=== PATIENT | female | born 1970 | race Caucasian/White ===

== ENCOUNTER 2023-12-16 12:49 | Outpatient (AMB) | payer OTHER, SELFPAY ==
--- NOTE | 2023-12-16 12:50 | AM.OFFWIN_ITS ---
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 She states she has been dealing with teeth issues and has been on multiple round of antibiotics. Patient Tobacco Use Status: Current everyday Tobacco user Accompanied by: Self / Same As Patient Allergies No Known Allergies Allergy (Verified 12/16/23 12:55) Do you need a note to return to daycare/school/sports/work: No HPI HPI Comments History of Present Illness Details She preents to office with HTN She has no significant medical hx Only issue is a tooth on the L side that needs extraction Pain intermittent; she had appointment for extraction but FLAQUITO was too high (November 21), was 180s/? She was given ativan prior to coming to next appointment (Friday and yesterday taken) and arrived to appointment yesterday and BP was still elevated Unable to be extracted She does not have a PCP; last seen October 17 for yearly OB appointment and BP was 138/88 She denies symptoms with HTN No dizziness, vision changes, nausea/vomiting, CP, SOB, weakness or numbness Otherwise she feels fineSaw Dr briscoe in the past; 4 years ago ON LICENSE OF [facility] Social History Patient Tobacco Use Status: Current everyday Tobacco user Review of Systems Const Denies body aches, Denies chills, Denies fatigue, Denies fever(s) and Denies headache(s) Eyes Denies blurry vision and Denies change in vision ENT Denies otalgia, Denies headache(s), Reports mouth pain (dental pain L sided intermittent since October 2023), Denies nasal discharge and Denies sore throat Card Denies chest pain, Denies rapid heart rate and Denies dyspnea Resp Denies cough and Denies dyspnea GI Denies nausea and Denies vomiting Musc Denies myalgias Neuro Denies headache(s) Endo Denies fatigue Physical Exam Vital Signs: Last Vital Signs Pulse 86 12/16/23 12:51 BP 190/110 H 12/16/23 12:51 Pulse Ox 100 12/16/23 12:51 Oxygen Delivery Method Room Air 12/16/23 12:51 General: Non-toxic, NAD. Speaking full sentences. Skin: Warm dry throughout. No facial edema or erythema. No submandibular edema Eye: EOMI, PERRL HENT: Airway patent. Uvula midline. No pharyngeal erythema or edema. No CATALYTIC CASE OPERATOR. Bilateral canals clear. TM non-erythematous, non-bulging. No TM perforation or hemotympanum noted. Respiratory: CTA bilaterally. No wheezes, rales or rhonchi Cardiac: RRR. No murmur MSK: Full ROM extremities. Neurology: A/O. No aphasia or facial droop. Gait without abnormality Psych: Good mood and affect Assessment & Plan Assessment & Plan (1) Hypertension: Code(s): I10 - Essential (primary) hypertension Qualifiers: Hypertension type: unspecified Qualified Code(s): I10 - Essential (primary) hypertension Plan: Patient seen and evaluated. She has no current complaint aside from intermittent L sided dental pain and HTN EKG will be obtained in office; 73bpm, NSR No STEMI Repeat pressure 182/108 LUE sitting Discussed with pt that she needs to get into PCP and she will ask front if they will place her on the schedule Discussed case with PCP in office and they told me protocol to ask up front and place her on medicine Will start on HCTZ low dose and have pt keep log every other day We discussed in depth that uncontrolled BP can lead to stroke and IA and potentially she is aware She was educated on s/s of hypo and hypertension and when to go to ED Patient gave verbal understanding and had no additional questions or concerns at time of discharge All questions answered Orders: Orders AMB EKG-In Office Today I10 - Essential (primary) hypertension Medications: New hydrochlorothiazide 12.5 mg PO DAILY 30 tabs 0RF Coding Level of Care Code New Pt Level 4 (26797) Diagnoses Hypertension, unspecified type I10 Hypertension type: unspecified
[2023-12-16 12:51] VITALS: BP 190/110; PULSE 86; O2SAT 100
== END 2023-12-16 14:32 | disposition home or self-care (01) ==
PROVIDERS: PCP Internal Medicine; Visit Provider Physician Assistant
DX: I10 Essential (primary) hypertension (principal)
CPT/HCPCS: 99204

== ENCOUNTER 2023-12-26 08:11 | Outpatient (AMB) | payer OTHER, SELFPAY ==
--- NOTE | 2023-12-26 08:37 | AM.OFFWIN_ITS ---
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 Pt was seen previous at Walk in clinic for elevated BP. She was prescribed HCTZ 12.5 mg. Denies any Symptoms. She has been unable to monitor BPs at home because her Monitor is broken. She is planning to purchase new one today. PFSH Social History Patient Tobacco Use Status: Current everyday Tobacco user Review of Systems Const All systems reviewed & are unremarkable except as noted in HPI and below Physical Exam Vital Signs: Last Vital Signs Temp 97.7 F 12/26/23 08:39 Pulse 72 12/26/23 08:39 BP 110/70 12/26/23 08:39 Pulse Ox 99 12/26/23 08:39 Oxygen Delivery Method Room Air 12/26/23 08:39 Const General: comfortable and no acute distress Orientation/consciousness: patient oriented x3 Resp Effort & Inspection: normal respiratory effort and able to speak in complete sentences Auscultation: clear to auscultation bilaterally, no crackles, no rales, no rhonchi and no wheezes Cardio Rate: regular rate Rhythm: regular rhythm Neuro General: patient oriented x3, gait normal and moves all extremities Psych Speech and movement: Normal speech and movement present Attitude: cooperative Assessment & Plan Assessment & Plan (1) Hypertension: Code(s): I10 - Essential (primary) hypertension Qualifiers: Hypertension type: unspecified Qualified Code(s): I10 - Essential (primary) hypertension Plan: - BP this morning WNL - Continue on current dose - Monitor BPs at home and keep Log - Lifestyle changes - F/U with PCP as scheduled. Coding Level of Care Code Est Pt Level 3 (69923) Diagnoses Hypertension, unspecified type I10 Hypertension type: unspecified Time Spent (min) 15
[2023-12-26 08:39] VITALS: BP 110/70; PULSE 72; TEMP 36.5; O2SAT 99
== END 2023-12-26 10:28 | disposition home or self-care (01) ==
PROVIDERS: Visit Provider Nurse Practitioner Family
DX: I10 Essential (primary) hypertension (principal)
CPT/HCPCS: 99213

== ENCOUNTER 2024-01-02 08:55 | Outpatient (AMB) | payer OTHER, SELFPAY ==
--- NOTE | 2024-01-02 09:01 | A.OFFPC_ITS ---
Vital Signs 01/02/24 09:02 Height 5 ft 9 in Weight 198 lb 4 oz BMI 29.3 BP 140/82 H Blood Pressure Location Rt brachial Position Sitting Pulse 75 Pulse Source Pulse Oximeter Pulse Oximetry (%) 99 Oxygen Delivery Method Room Air Intake Visit Reasons: Est. 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 Elevated BP Intake Note: Pt is here to est care Pt last Mammogram was 6 months ago pt needs referral for Colon screening Is last menstrual period known: No Allergies No Known Allergies Allergy (Verified 01/02/24 09:25) Medication List - Last Reconciled 01/02/24 by JESSE Rodriguez hydrochlorothiazide 12.5 mg PO DAILY lisinopril 5 mg PO DAILY Tobacco use date assessed: 01/02/24 Dental Screening Dental Screen Date: 01/02/24 Did you have a dental visit in the last 12 months?: Yes Did you have a dental problem in the last 6 months where you did not have access to dental care?: No Was dental information given to patient?: Patient has dentist HPI HPI Comments History of Present Illness Details Patient is a 53-year-old female who I am meeting for the 1st time. Patient was seen in our walk-in clinic 3 weeks prior for elevated blood pressure, was put on hydrochlorothiazide 12.5 mg came back for repeat blood pressure which was 110/70. At the appointment today the patient's blood pressure is 140/82. The patient states she has been taking blood pressure measurements at home and she has been getting elevated readings, with systolic readings consistently being 150 mmHg. Patient denies any symptoms at this time. Will start patient on lisinopril 5 mg to be taken in conjunction with hydrochlorothiazide 12.5 mg p.o. patient will come back in 2 weeks for blood pressure recheck. Will draw fasting labs today. Will refer patient to GI for colonoscopy. Patient is up-to-date with Pap smear and mammogram, gets them at [facility], will have patient sign release so we can obtain records. [facility] Medical History Fibroid Family History Father Esophageal cancer Social History Housing: House Patient Tobacco Use Status: Current everyday Tobacco user Cigarettes Per Day: 4 e-Cigarette/Vaping Use: Never Used Second Hand Smoke Exposure: No service: No Current occupational status: employed Current occupation: [employer] Current occupational exposures/hazards: No Questionnaire PHQ-9 Over the last 2 weeks, how often have you been bothered by any of the following problems? 1. Little interest or pleasure in doing things: not at all 2. Feeling down, depressed, or hopeless: not at all 3. Trouble falling or staying asleep, or sleeping too much: several days 4. Feeling tired or having little energy: several days 5. Poor appetite or overeating: not at all 6. Feeling bad about yourself - or that you are a failure or have let yourself or your family down: not at all 7. Trouble concentrating on things, such as reading the newspaper or watching television: not at all 8. Moving or speaking so slowly that other people could have noticed. Or the opposite - being so fidgety or restless that you have been moving around a lot more than usual: not at all 9. Thoughts that you would be better off or of hurting yourself in some way: not at all Total score: 2 Depression Screening Interpretation: Negative Depression Screening Done: Yes [id number] - PHQ-9 Billing: Yes Source: Developed by Drs. Mark Cooley, Yun Haynes, Tommie Martinez and colleagues, with an educational shon from [employer]. Thrive Questionnaire Date Thrive assessed: 01/02/24 I am a: Patient What is your living situation today?: I have a steady place to live Within the past 12 months, did the food you bought not last and you didn't have the money to get more?: Never true Within the past 12 months, did you worry whether your food would run out before you got money to buy more?: Never true Do you have trouble paying for medicines?: No Do you have trouble getting transportation to medical appointments?: No Do you have trouble paying your heating and electricity bill?: No Do you have trouble taking care of your child, family member or friend?: No Do you have trouble with day-to-day activities such as bathing, preparing meals, shopping, managing finances, etc.?: No Are you currently unemployed and looking for a job?: No Are you interested in more education?: No Please select the resources that you would like help with: None THRIVE Score: 0 AUDIT C Alcohol Use Questionnaire (AUDIT-C) 1. How often do you have a drink containing alcohol?: 4 or more times a week 2. How many drinks containing alcohol do you have on a typical day when you are drinking?: 3 or 4 3. How often do you have six or more drinks on one occasion?: Weekly Total Score: 8 KRISTINE-7 AMB Questionnaire KRISTINE-7 Date KRISTINE - 7 assessed: 01/02/24 Feeling nervous, anxious, or on edge: 1 = Several days Not being able to stop or control worryin = Several days Worrying too much about different things: 1 = Several days Trouble relaxin = Several days Being so restless that it is hard to sit still: 1 = Several days Becoming easily annoyed or irritable: 1 = Several days Feeling afraid as if something awful might happen: 0 = Not at all Total KRISTINE-7 score (0-4 normal; 5-9 mild; 10-14 moderate; 15-21 severe): 6 Source: Developed by Drs. Mark Cooley, Yun Haynes, Tommie Martinez and colleagues, with an educational shon from [employer]. KRISTINE-7 Assessment Billing KRISTINE-7 Assessment Tool: KRISTINE-7 Assessment 95536 Review of Systems Const All systems reviewed & are unremarkable except as noted in HPI and below Denies headache(s) Eyes Denies loss of vision ENT Denies dizziness and Denies headache(s) Card Denies chest pain, Denies lightheadedness and Denies dyspnea Resp Denies dyspnea Musc Denies numbness Neuro Denies dizziness, Denies headache(s), Denies loss of vision and Denies numbness Physical exam (Primary Care) Care Plan Goal for BP management: Will start patient on 5 mg lisinopril p.o.. Next steps: Patient will come back in 2 weeks for blood pressure recheck Tobacco/Smoking Status: Tobacco use Status Patient Tobacco Use Status Current everyday Tobacco 12/26/23 08:41 Depression Screening Interpretation: Negative Const Other: Appearance: Alert.? Oriented X3.? No acute distress.? Head: Normocephalic, atraumatic, no step-offs or deformities Eyes: Pupils equal, round and reactive to light.? Neck: Normal inspection.? Neck supple.? CVS: Normal heart rate and rhythm.? Pulses normal.? Respiratory: No respiratory distress.? Breath sounds normal.? Neuro: Oriented X 3.? No motor deficit.? No sensory deficit. CN 2-12 intact Assessment and Plan Assessment & Plan (1) Hypertension: Comment: Will start patient on lisinopril 5 mg po. Patient will take BP measurements at home and recheck in office in two weeks. Code(s): I10 - Essential (primary) hypertension Qualifiers: Hypertension type: unspecified Qualified Code(s): I10 - Essential (primary) hypertension Plan: Take your medications as prescribed. If you were prescribed antibiotics today, it is important that you take your medication to their entirety, do not skip any doses, do not finish them early. Follow-up with your primary care provider this week. Return to the emergency department with new or worsening symptoms. Such as fevers, chills, chest pain, shortness of breath, nausea, vomiting, dizziness, headache, vision changes, lethargy In case of emergency call 911 Plan follow up PE in 3 months. Orders: Orders Complete Blood Count Auto Diff Today Z13.0 - Encounter for screening for diseases of the blood and blood-forming organs and certain disorders involving the immune mechanism Comprehensive Met. Panel Today I10 - Essential (primary) hypertension TSH reflex Free T4 Today I10 - Essential (primary) hypertension UA CC w/rflx Micro + Cult Today Z13.89 - Encounter for screening for other disorder Vitamin D 25-OH (D2 and D3) Today Z13.21 - Encounter for screening for nutritional disorder Vitamin B6 Today Z13.21 - Encounter for screening for nutritional disorder Vitamin B12 Today Z13.21 - Encounter for screening for nutritional disorder Referrals Nurse Navigator Referral I10 - Essential (primary) hypertension Gastroenterology Referral Z12.11 - Encounter for screening for malignant neoplasm of colon Medications: New lisinopril 5 mg PO DAILY 90 tabs 0RF Review Flu Vaccine not done: patient reason (declined. ) Coding Level of Care Code Est Pt Level 3 (10930) Diagnoses Hypertension, unspecified type I10 Hypertension type: unspecified Additional Codes KRISTINE-7 Assessment Billing - KRISTINE-7 Assessment Tool: KRISTINE-7 Assessment 80994 ([id number]) Time Spent (min) 27
[2024-01-02 09:02] VITALS: BP 140/82; PULSE 75; O2SAT 99; BMI 29.3
== END 2024-01-02 09:36 | disposition home or self-care (01) ==
PROVIDERS: Visit Provider Nurse Practitioner Primary Care
DX: I10 Essential (primary) hypertension (principal)
CPT/HCPCS: 99213

== ENCOUNTER 2024-01-02 09:40 | Outpatient (REF) | payer OTHER, SELFPAY ==
[2024-01-02 13:23] LABS: Appearance Urine Clear; Color Urine Yellow; Glucose Urine UA Negative (Negative); Leukocyte Esterase Urine Negative (Negative); Nitrite Urine Negative (Negative); PH 7.5 (5.0-9.0); Specific Gravity - Urine <= 1.005 (1.005-1.025); Urine Blood Negative (Negative); Urine Ketones Negative (Negative); Urine Protein Negative (Neg-Trace)
[2024-01-02 13:37] LABS: MANUAL DIFF FLAG NO
[2024-01-02 13:44] LABS: Basophils Percent Auto 0.6 % (0-2); Eosinophils Absolute Auto 0.1 X10*3/uL (0.0-0.4); Eosinophils Percent Auto 2.3 % (0-4); Hematocrit 42.4 % (37.0-47.0); Hemoglobin 14.5 g/dl (12.0-16.0); Imm Gran Abs Auto 0.01 X10*3/uL (0.00-0.03); Imm Gran Pct Auto 0.2 % (0.0-0.4); Lymphocytes Absolute Auto 1.5 X10*3/uL (1.2-4.9); Lymphocytes Percent Auto 29.8 % (20-40); Mean Corpuscular HGB Conc 34.2 g/dl (31.0-35.0); Mean Corpuscular Hemoglobin 31.5 pg (27.0-33.0); Mean Corpuscular Volume 92.2 fL (80.0-98.0); Mean Platelet Volume 11.8 fL (9.4-12.3); Monocytes Absolute Auto 0.4 X10*3/uL (0.1-1.2); Monocytes Percent Auto 7.4 % (2-11); Neutrophils Absolute Auto 2.9 x10*3/uL (2.0-8.3); Neutrophils Percent Auto 59.7 % (45-73); Platelet Count 207 X10*3/uL (160-400); White Blood Count 4.9 X10*3/uL (4.8-10.8)
[2024-01-02 14:33] LABS: Alanine Aminotransferase 26 U/L (0-31); Albumin Level 4.3 g/dL (3.5-5.0); Alkaline Phosphatase 93 U/L (39-117); Anion Gap 10 (12-20); Aspartate Amino Transferase 24 U/L (5-31); Bilirubin Total 0.4 mg/dL (0.0-1.0); Blood Urea Nitrogen 16 mg/dL (9-16); Calcium 9.5 mg/dL (8.4-10.2); Carbon Dioxide 29 mmol/L (22-29); Chloride 106 mmol/L (96-108); Estimated Glomerular Filt Rate > 60; Glucose Random 88 mg/dL (60-115); Potassium 3.7 mmol/L (3.3-5.1); Sodium 141 mmol/L (135-145)
[2024-01-02 14:41] LABS: Vitamin B12 454 pg/mL (200-900)
[2024-01-02 14:48] LABS: TSH reflex Free T4 0.66 uIU/mL (0.32-4.0)
[2024-01-06 13:43] LABS: Vitamin D 25-OH, D2 <4 ng/mL; Vitamin D 25-OH, D3 10 ng/mL; Vitamin D 25-OH, Total 10 ng/mL (30-100)
[2024-01-06 15:03] LABS: Vitamin B6 9.7 ng/mL (2.1-21.7)
== END 2024-01-02 09:41 | disposition home or self-care (01) ==
LOC: HO.HMGCLDS 09:40
PROVIDERS: PCP Nurse Practitioner Primary Care; Visit Provider Nurse Practitioner Primary Care
DX: Z13.89 Encounter for screening for other disorder (principal); Z13.21 Encounter for screening for nutritional disorder; Z13.0 Encounter for screening for diseases of the blood and blood-forming organs and certain disorders involving the immune mechanism; I10 Essential (primary) hypertension
CPT/HCPCS: 36415; 80053; 81003; 82306; 82607; 84207; 84443; 85025

== ENCOUNTER 2024-01-23 08:26 | Outpatient (AMB) | payer OTHER, SELFPAY ==
--- NOTE | 2024-01-23 08:29 | MHC.PC.OV ---
Vital Signs 01/23/24 08:30 Height 5 ft 9 in Weight 198 lb BMI 29.2 BP 140/98 H Blood Pressure Location Lt brachial Position Sitting Pulse 74 Pulse Source Pulse Oximeter Pulse Oximetry (%) 99 Oxygen Delivery Method Room Air Intake Visit Reasons: medical clearance from for dental work Ok per Jad Intake Note: Patient here for pre op clearance for tooth extraction. Allergies No Known Allergies Allergy (Verified 01/23/24 08:47) Medication List - Last Reconciled 01/23/24 by JESSE Rodriguez cholecalciferol (vitamin D3) 25 mcg PO DAILY hydrochlorothiazide 12.5 mg PO DAILY lisinopril 5 mg PO DAILY Tobacco use date assessed: 01/02/24 Dental Screening Dental Screen Date: 01/02/24 HPI HPI Comments History of Present Illness Details Patient is a 53-year-old female in today for preop clearance. Patient is in need of tooth extraction. She was originally scheduled for extraction in December but was sent to the walk-in clinic due to elevated blood pressures systolic 190. Patient was placed on HCT 12.5 mg a walk-in clinic, and 5 mg lisinopril. Patient's blood pressure today 140/98, will increase lisinopril to 10 mg p.o. daily. Patient denies symptoms of headache, chest pain, dizziness, numbness, vision changes. Patient has blood pressure recheck in office in 1 week. Patient is cleared for tooth extraction [facility] Medical History Fibroid Family History Father Esophageal cancer Social History Housing: House Patient Tobacco Use Status: Current everyday Tobacco user Cigarettes Per Day: 4 e-Cigarette/Vaping Use: Never Used Second Hand Smoke Exposure: No service: No Current occupational status: employed Current occupation: [employer] Current occupational exposures/hazards: No Questionnaire Thrive Questionnaire Date Thrive assessed: 01/02/24 KRISTINE-7 AMB Questionnaire KRISTINE-7 Date KRISTINE - 7 assessed: 01/02/24 Source: Developed by Drs. Mark Cooley, Yun Haynes, Tommie Martinez and colleagues, with an educational shon from [employer]. Review of Systems Const All systems reviewed & are unremarkable except as noted in HPI and below Denies headache(s) Eyes Denies blurry vision and Denies diplopia ENT Denies vertigo, Denies dizziness and Denies headache(s) Neuro Denies vertigo, Denies dizziness and Denies headache(s) Physical exam (Primary Care) Vital Signs: Last Vital Signs Pulse 74 01/23/24 08:30 BP 140/98 H 01/23/24 08:30 Pulse Ox 99 01/23/24 08:30 Oxygen Delivery Method Room Air 01/23/24 08:30 BMI result Body Mass Index 29.2 Tobacco/Smoking Status: Tobacco use Status Tobacco use date assessed 01/02/24 01/23/24 08:33 Patient Tobacco Use Status Current everyday Tobacco 01/23/24 08:33 e-Cigarette/Vaping Use Never Used 01/23/24 08:33 Thrive Assessment: Date of Thrive Assessment Date Thrive assessed 01/02/24 01/23/24 08:33 Const Other: Appearance: Alert.? Oriented X3.? No acute distress.? Head: Normocephalic, atraumatic. Eyes: Pupils equal, round and reactive to light.? Neck: Normal inspection.? Neck supple.? CVS: Normal heart rate and rhythm.? Pulses normal.? Respiratory: No respiratory distress.? Breath sounds normal.? Neuro: Oriented X 3.? No motor deficit.? No sensory deficit. CN 2-12 intact Assessment and Plan Assessment & Plan (1) Hypertension: Comment: Patient's lisinopril increased from 5 mg to 10 mg p.o. daily Code(s): I10 - Essential (primary) hypertension Qualifiers: Hypertension type: unspecified Qualified Code(s): I10 - Essential (primary) hypertension Plan: Patient has follow-up blood pressure check in 1 week Medications: Changed From lisinopril 5 mg PO DAILY 90 tabs 0RF To lisinopril 10 mg (2 x 5 mg) PO DAILY 90 tabs 3RF Refilled hydrochlorothiazide 12.5 mg PO DAILY 90 tabs 3RF Coding Level of Care Code Est Pt Level 3 (58746) Diagnoses Hypertension, unspecified type I10 Hypertension type: unspecified Time Spent (min) 22
[2024-01-23 08:30] VITALS: BP 140/98; PULSE 74; O2SAT 99; BMI 29.2
== END 2024-01-23 10:04 | disposition home or self-care (01) ==
PROVIDERS: PCP Nurse Practitioner Primary Care; Visit Provider Nurse Practitioner Primary Care
DX: I10 Essential (primary) hypertension (principal)
CPT/HCPCS: 99213

== ENCOUNTER 2024-08-10 08:30 | Outpatient (AMB) | payer OTHER, SELFPAY ==
[2024-08-10 09:00] VITALS: BP 140/90; PULSE 69; O2SAT 99; BMI 29.4
--- NOTE | 2024-08-10 09:00 | MHC.PC.OV ---
Vital Signs 08/10/24 09:00 08/10/24 09:47 Height 5 ft 9 in Weight 199 lb BMI 29.4 BP 140/90 H 130/85 Blood Pressure Location Rt brachial Rt brachial Position Sitting Sitting Pulse 69 Pulse Source Pulse Oximeter Pulse Oximetry (%) 99 Oxygen Delivery Method Room Air Intake Visit Reasons: Annual Transfer of Care from [facility] Intake Note: Pt is here today transfer from [facility] for her PE: Mammogram 04/06/24, Papsmear 07/29/22: Pt never had a colonoscopy, but has a consult appt Allergies No Known Allergies Allergy (Verified 08/10/24 09:29) Medication List - Last Reconciled 08/10/24 by Sade Ramsey MD cholecalciferol (vitamin D3) 25 mcg PO DAILY hydrochlorothiazide 12.5 mg PO DAILY lisinopril 10 mg (2 x 5 mg) PO DAILY Tobacco use date assessed: 08/10/24 Dental Screening Dental Screen Date: 08/10/24 Did you have a dental visit in the last 12 months?: Yes Did you have a dental problem in the last 6 months where you did not have access to dental care?: No Was dental information given to patient?: Patient has dentist HPI Annual Transfer of Care from [facility] HPI Details 54 year old lady, transfer from previous PCP, with history of hypertension, currently on lisinopril and hydrochlorothiazide. Today for physical exam and to establish care with a new PCP. She is up-to-date with her cervical cancer screening and breast cancer screening, with last Pap smear done 07/29/2022 and last mammogram 04/06/2024 done at [facility]. Never had a colonoscopy done but she is scheduled for her initial colonoscopy, has an appointment with [facility] in 09/24/2024. Hypertension stable and controlled on present treatment. [facility] Medical History (Updated 08/10/24 @ 09:52 by Sade Ramsey MD) Flu vaccine refused Regular alcohol consumption COVID-19 vaccination refused Not ready to quit smoking Vitamin D deficiency Fibroid Surgical History (Updated 08/12/24 @ 04:17 by Sade Ramsey MD) No pertinent past surgical history Family History Father Esophageal cancer Social History Housing: House Patient Tobacco Use Status: Current everyday Tobacco user Cigarettes Per Day: 4 e-Cigarette/Vaping Use: Never Used Second Hand Smoke Exposure: No service: No Current occupational status: employed Current occupation: [employer] Current occupational exposures/hazards: No Cognitive needs: No Hearing needs: No Vision needs: No Questionnaire PHQ-9 Over the last 2 weeks, how often have you been bothered by any of the following problems? 1. Little interest or pleasure in doing things: not at all 2. Feeling down, depressed, or hopeless: not at all 3. Trouble falling or staying asleep, or sleeping too much: several days 4. Feeling tired or having little energy: not at all 5. Poor appetite or overeating: several days 6. Feeling bad about yourself - or that you are a failure or have let yourself or your family down: not at all 7. Trouble concentrating on things, such as reading the newspaper or watching television: not at all 8. Moving or speaking so slowly that other people could have noticed. Or the opposite - being so fidgety or restless that you have been moving around a lot more than usual: not at all 9. Thoughts that you would be better off or of hurting yourself in some way: not at all Total score: 2 Depression Screening Interpretation: Negative Depression Screening Done: Yes 82106 - PHQ-9 Billing: Yes Source: Developed by Drs. Mark Cooley, Yun Haynes, Tommie Martinez and colleagues, with an educational shon from [employer]. Thrive Questionnaire Date Thrive assessed: 08/10/24 I am a: Patient What is your living situation today?: I have a steady place to live Within the past 12 months, did the food you bought not last and you didn't have the money to get more?: Never true Within the past 12 months, did you worry whether your food would run out before you got money to buy more?: Never true Do you have trouble paying for medicines?: No Do you have trouble getting transportation to medical appointments?: No Do you have trouble paying your heating and electricity bill?: No Do you have trouble taking care of your child, family member or friend?: No Do you have trouble with day-to-day activities such as bathing, preparing meals, shopping, managing finances, etc.?: No Are you currently unemployed and looking for a job?: No Are you interested in more education?: No Please select the resources that you would like help with: None Currently or been in a relationship where the following occur: No concerns reported THRIVE Score: 0 AUDIT C Alcohol Use Questionnaire (AUDIT-C) 1. How often do you have a drink containing alcohol?: 4 or more times a week 2. How many drinks containing alcohol do you have on a typical day when you are drinking?: 3 or 4 3. How often do you have six or more drinks on one occasion?: Weekly Total Score: 8 KRISTINE-7 AMB Questionnaire KRISTINE-7 Date KRISTINE - 7 assessed: 08/10/24 Feeling nervous, anxious, or on edge: 0 = Not at all Not being able to stop or control worryin = Not at all Worrying too much about different things: 0 = Not at all Trouble relaxin = Not at all Being so restless that it is hard to sit still: 0 = Not at all Becoming easily annoyed or irritable: 0 = Not at all Feeling afraid as if something awful might happen: 0 = Not at all Total KRISTINE-7 score (0-4 normal; 5-9 mild; 10-14 moderate; 15-21 severe): 0 Source: Developed by Drs. Mark Cooley, Yun Haynes, Tommie Martinez and colleagues, with an educational shon from [employer]. KRISTINE-7 Assessment Billing KRISTINE-7 Assessment Tool: KRISTINE-7 Assessment 10314 Review of Systems Const All systems reviewed & are unremarkable except as noted in HPI and below Denies fatigue and Denies headache(s) Eyes Denies blurry vision, Denies diplopia and Denies itchy eyes ENT Denies vertigo, Denies dizziness and Denies headache(s) Card Denies chest pain, Denies lightheadedness, Denies palpitations and Denies dyspnea Resp Denies chest congestion, Denies cough, Denies dyspnea and Denies wheezing GI Denies abdominal pain, Denies change in bowel habits and Denies heartburn Denies hematuria, Denies urinary frequency, Denies dysuria and Denies urinary urgency Musc Reports no additional complaints Skin/Breast Denies breast pain, Denies breast mass, Denies lesions and Denies rash Neuro Denies vertigo, Denies dizziness and Denies headache(s) Psych Reports no additional complaints Endo Denies fatigue, Denies polydipsia, Denies polyuria and Denies palpitations Scooter/Lymph Denies easy bruising Aller/Immun Denies itchy eyes, Denies seasonal rhinorrhea and Denies wheezing Physical exam (Primary Care) Vital Signs: Last Vital Signs Pulse 69 08/10/24 09:00 BP 130/85 08/10/24 09:47 Pulse Ox 99 08/10/24 09:00 Oxygen Delivery Method Room Air 08/10/24 09:00 BMI result Body Mass Index 29.4 Tobacco/Smoking Status: Tobacco use Status Tobacco use date assessed 08/10/24 08/10/24 09:14 Patient Tobacco Use Status Current everyday Tobacco 08/10/24 09:05 e-Cigarette/Vaping Use Never Used 08/10/24 09:05 PHQ-9: PHQ-9 Score PHQ-9: Total score 2 08/10/24 09:37 Depression Screening Interpretation: Negative Thrive Assessment: Date of Thrive Assessment Date Thrive assessed 08/10/24 08/10/24 09:14 Currently or been in a relationship where the following occur: No concerns reported Advance Care Planning discussion: Completed/Scanned Date of discussion: 08/10/24 Who was present: Patient Forms completed: Health Care Proxy Time spent: 16-45 minutes Actual minutes spent: 3 Const General: no acute distress and alert Orientation/consciousness: patient oriented x3 HENMT Head: Yes normocephalic Ears: external ears normal, TM's normal bilaterally and EAC's normal General nose exam: Normal external nose present and No nasal discharge present Face and sinus: Yes face symmetric Mouth: Normal oral and palatal mucosa present, tongue normal, oropharynx normal and moist mucous membranes Eyes General: appearance normal, both eyes and all related structures Eyelids: Yes eyelids normal Conjunctivae: conjunctivae normal Sclerae: sclerae normal Pupils: Equal, round and reactive pupils present EOM: EOMs intact bilaterally Neck Neck: Yes full ROM, Yes no lymphadenopathy and Yes supple Thyroid: Thyroid normal Chest Chest palpation & inspection: normal inspection of the chest Breast/axilla palpation: normal palpation of the breasts Resp Effort & Inspection: normal respiratory effort and able to speak in complete sentences Auscultation: clear to auscultation bilaterally Cardio Rate: regular rate Rhythm: regular rhythm Heart sounds: S1 normal heart sound present and S2 normal heart sound present GI Palpation (GI): Soft to palpation, nontender, no guarding and no masses Auscultation: normal bowel sounds General: Yes no CVA tenderness and Yes deferred (Sees OBGYN) Back/Spine/Pelvis Back: no CVA tenderness and No back tenderness Skin General skin exam: no rashes or lesions noted Neuro General: patient oriented x3, gait normal, moves all extremities, Normal light touch and pain sensation, no focal motor deficits and CN's II-XI intact bilaterally Cranial nerves: Yes Equal, round and reactive pupils present Cognition (Neuro): normal cognition Gait exam (Neuro): Normal gait present Motor exam (neuro): 5/5 motor strength present throughout Extrem General: Yes normal to inspection, Yes full ROM, Yes no joint enlargement, Yes no pedal edema and Yes normal gait Psych Appearance: grossly normal and well kempt Mental Status: mental status grossly normal Speech and movement: Normal speech and movement present Affect: normal affect Attitude: cooperative Thought process: Normal thought process present Thought content: Normal thought content present Results Reviewed Results Reviewed: Name: Mai Ha Age/Sex: 53/F : 1970 Unit#: [id number] Attend Dr: Jad Monreal SENIOR SOFTWARE ENGINEERING MANAGER Re01/02/24 Status: DEP REF Location: [facility] Disch: SPEC : [id number] SAMUEL: 01/02/24 STATUS: COMP REQ : [id number] RECD: 01/02/[address]: Jad Monreal SENIOR SOFTWARE ENGINEERING MANAGER COMP: 01/02/24 ENTERED: 01/02/[address]: ORDERED: CBC Auto Diff Test Result Flag Reference WBC 4.9 4.8-10.8 X10*3/uL RBC 4.60 4.20-5.50 X10*6/uL HGB 14.5 12.0-16.0 g/dl HCT 42.4 37.0-47.0 % MCV 92.2 80.0-98.0 fL MCH 31.5 27.0-33.0 pg MCHC 34.2 31.0-35.0 g/dl RDW 12.0 11.0-16.0 % PLT 207 160-400 X10*3/uL MPV 11.8 9.4-12.3 fL Neut Pct Auto 59.7 45-73 % ImGran Pct Auto 0.2 0.0-0.4 % Lymp Pct Auto 29.8 20-40 % Hughes Pct Auto 7.4 2-11 % Eos Pct Auto 2.3 0-4 % Baso Pct Auto 0.6 0-2 % NRBC Pct Auto 0.0 0.0-0.2 /100WBC ANC Neut Abs # 2.9 2.0-8.3 x10*3/uL ImGran Abs Auto 0.01 0.00-0.03 X10*3/uL Lymph Abs Auto 1.5 1.2-4.9 X10*3/uL Hughes Abs Auto 0.4 0.1-1.2 X10*3/uL Eos Abs Auto 0.1 0.0-0.4 X10*3/uL Baso Abs Auto 0.0 0.0-0.2 X10*3/uL NRBC Abs Auto 0.000 0.0-0.012 X10*3/uL Name: Mai Ha Age/Sex: 53/F : 1970 Unit#: [id number] Attend Dr: Jad Monreal SENIOR SOFTWARE ENGINEERING MANAGER Re01/02/24 Status: DEP REF Location: [facility] Disch: SPEC : [id number] SAMUEL: 01/02/24 STATUS: COMP REQ : [id number] RECD: 01/02/[address]: Jad Monreal SENIOR SOFTWARE ENGINEERING MANAGER COMP: 01/02/24 ENTERED: 01/02/[address]: ORDERED: CMP, TSH Rflx Test Result Flag Reference Sodium 141 135-145 mmol/L Potassium 3.7 3.3-5.1 mmol/L CL 106 96-108 mmol/L CO2 29 22-29 mmol/L Gap 10 L 12-20 BUN 16 9-16 mg/dL Creat 0.81 0.5-1.4 mg/dL EGFR > 60 NOTE: For -[place] individuals, multiply the result by 1.210. Chronic Kidney Disease: Estimated GFR < 60 mL/min/1.73m2 Severe Kidney Disease: Estimated GFR < 15 mL/min/1.73m2 Glucose, Random 88 60-115 mg/dL CA 9.5 8.4-10.2 mg/dL Total Bili 0.4 0.0-1.0 mg/dL AST (GOT) 24 5-31 U/L ALT (GPT) 26 0-31 U/L Protein, Total 7.0 6.5-8.0 g/dL Alb 4.3 3.5-5.0 g/dL Alk Phos 93 39-117 U/L TSH 0.66 0.32-4.0 uIU/mL Laboratory Tests 01/02/24 09:48 Vitamin B6 9.7 Vitamin B12 454 25-OH Vitamin D Total 10 L TSH 0.66 Coding Level of Care Code Est Pt Prev Care 40-64y(47191) Diagnoses Annual visit for general adult medical examination with abnormal findings Z00.01 Hypertension, unspecified type I10 Hypertension type: unspecified Encounter for screening for lipid disorder Z13.220 Screening for Malignant Neoplasm of Skin Z12.83 Vitamin D deficiency E55.9 Not ready to quit smoking Z72.0 COVID-19 vaccination refused Z28.21 Flu vaccine refused Z28.21 Regular alcohol consumption Z78.9 Advanced directives, counseling/discussion Z71.89 Additional Codes Vital Signs *Quality* - Advance Care Planning discussion: Completed/Scanned ([id number]) Vital Signs *Quality* - Time spent: 16-45 minutes ([id number]) KRISTINE-7 Assessment Billing - KRISTINE-7 Assessment Tool: KRISTINE-7 Assessment 74249 ([id number]) Assessment & Plan Assessment & Plan (1) Annual visit for general adult medical examination with abnormal findings: Code(s): Z00.01 - Encounter for general adult medical examination with abnormal findings Plan: Latest labs reviewed with patient. Will check a fasting lipid panel and vitamin-D level. Continued regular dental visit every 6 months and regular eye exams, at least every 2 years. Take adequate calcium in diet and vitamin-D 3 at 2000 IU per cap once a day, in addition to weight-bearing exercises to help maintain good muscle tone and weight control. Instructed to do self-breast exam, and continue with yearly mammogram, gets it done at [facility] up-to-date with her cervical cancer screening. Has an appointment already scheduled for her screening colonoscopy. Patient does not want to get any COVID or flu vaccine. (2) Hypertension: Comment: Patient's lisinopril increased from 5 mg to 10 mg p.o. daily Code(s): I10 - Essential (primary) hypertension Category: Medical Qualifiers: Hypertension type: unspecified Qualified Code(s): I10 - Essential (primary) hypertension Plan: Blood pressure at goal of less than 130/80. Continue with lisinopril 10 mg daily and hydrochlorothiazide 12.5 mg once a day Reinforced importance of following a low sodium diet, getting regular exercise, cutting back alcohol intake to at least 1 a day or less, and lowering stress levels. (3) Encounter for screening for lipid disorder: Code(s): Z13.220 - Encounter for screening for lipoid disorders Plan: Fasting lipid panel ordered (4) Screening for Malignant Neoplasm of Skin: Code(s): Z12.83 - Encounter for screening for malignant neoplasm of skin Plan: Referred to dermatology for her routine skin cancer screening (5) Vitamin D deficiency: Code(s): E55.9 - Vitamin D deficiency, unspecified Category: Medical Plan: Last vitamin-D level was low, will repeat vitamin-D level (6) Not ready to quit smoking: Code(s): Z72.0 - Tobacco use Category: Social Hx Plan: Patient strongly advised to stop smoking, as smoking damages blood vessels, degenerative of joints and spine, damage to lungs and heart., predisposes to developing certain cancers like lung, breast, bladder, colon. Recommended to try decreasing cigarette use by 1-2 cigarettes a day. Advised to monitor what triggers are for smoking so that this can be discussed on the next office visit. We can discuss different options to quit smoking when ready. (7) COVID-19 vaccination refused: Code(s): Z28.21 - Immunization not carried out because of patient refusal Category: Medical Plan: Does not want to get any further COVID vaccine booster (8) Flu vaccine refused: Code(s): Z28.21 - Immunization not carried out because of patient refusal Category: Medical Plan: Flu vaccine offered but patient declined (9) Regular alcohol consumption: Code(s): Z78.9 - Other specified health status Category: Social Hx Plan: Patient advised to cut back on her alcohol intake to at least 1 drink a day or less. Some past studies had suggested that moderate drinking might be good for your health. But scientists highly debate these findings. More studies now show that there aren't health benefits of moderate drinking compared to not drinking. (10) Advanced directives, counseling/discussion: Code(s): Z71.89 - Other specified counseling Plan: Initiated the conversation about Advanced Directives. Advanced Directives help patients prepare for current and future decisions about their medical treatment and place of care. Discussed with patient that it is a process where a patients current condition and prognosis are reviewed, their wishes for information regarding their illness are elicited, and likely medical dilemmas are presented and options discussed. Healthcare proxy form completed today. The form can be amended as needed, reviewed yearly and make changes as needed Orders: Orders Lipid Panel 08/10/24 E55.9 - Vitamin D deficiency, unspecified, I10 - Essential (primary) hypertension, Z13.220 - Encounter for screening for lipoid disorders Vitamin D 25-OH Total 08/10/24 E55.9 - Vitamin D deficiency, unspecified, I10 - Essential (primary) hypertension, Z13.220 - Encounter for screening for lipoid disorders Referrals Dermatology Referral Z12.83 - Encounter for screening for malignant neoplasm of skin
[2024-08-10 09:47] VITALS: BP 130/85
== END 2024-08-10 09:55 | disposition home or self-care (01) ==
LOC: HO.HMCC 08:31
PROVIDERS: PCP Nurse Practitioner Primary Care; Visit Provider Internal Medicine
DX: Z00.01 Encounter for general adult medical examination with abnormal findings (principal); I10 Essential (primary) hypertension; Z13.220 Encounter for screening for lipoid disorders; Z12.83 Encounter for screening for malignant neoplasm of skin; E55.9 Vitamin D deficiency, unspecified; Z72.0 Tobacco use; Z28.21 Immunization not carried out because of patient refusal; Z78.9 Other specified health status; Z71.89 Other specified counseling; Z00.00 Encounter for general adult medical examination without abnormal findings

== ENCOUNTER → 2024-08-10 08:30 | Outpatient (BNVA) | payer OTHER, SELFPAY | PROVIDERS: PCP Nurse Practitioner Primary Care; Visit Provider Internal Medicine | DX: Z00.01 Encounter for general adult medical examination with abnormal findings (principal); I10 Essential (primary) hypertension; E55.9 Vitamin D deficiency, unspecified; Z72.0 Tobacco use; Z79.899 Other long term (current) drug therapy; Z28.21 Immunization not carried out because of patient refusal; Z78.9 Other specified health status; Z71.89 Other specified counseling | CPT/HCPCS: 96127 ==

== ENCOUNTER 2025-01-04 14:37 | Outpatient (AMB) | payer OTHER, SELFPAY ==
[2025-01-04 14:39] VITALS: BP 126/67; PULSE 85; BMI 28.3
--- NOTE | 2025-01-04 14:39 | A.OFFVIS_ITS ---
Vital Signs 3 01/04/25 14:39 Height 5 ft 9 in Weight 191 lb 12.835 oz BMI 28.3 BP 126/67 Blood Pressure Location Rt brachial Position Sitting Pulse 85 Intake Visit Reasons: colo screening Intake Note: Mai presents in office today for colonoscopy screening. CC: Patient has never had a colonoscopy done before. Denied having any GI symptoms or concerns today. Analysis Or Research Safety Inspector Required: No Accompanied by: Self / Same As Patient Allergies No Known Allergies Allergy (Verified 01/04/25 14:44) HPI HPI colo screening: Details: 54-year-old female here for preprocedural meeting to discuss a screening colonoscopy. She is referred by Sade Ramsey. PMX Smoker Hypertension Uterine fibroids * SURGICAL HISTORY C section x 3 * ALLERGIES: NKDA * [employer] LABS: None since last year TODAY'S VISIT this is her first colonoscopy. No bowel problems she has occasional GERD and is worried about her FHX of esophageal cancer. She denies any cardiac or respiratory problems. No ID problems. She as no known FHX of crc or polyps, but her father of esophageal cancer. [facility] Medical History Flu vaccine refused Regular alcohol consumption COVID-19 vaccination refused Not ready to quit smoking Vitamin D deficiency Fibroid Surgical History S/P section Family History Father Esophageal cancer Social History Housing: House Alcohol intake: current Alcohol intake frequency: a few times a week Alcohol type: beer Patient Tobacco Use Status: Current everyday Tobacco user Cigarettes Per Day: 4 e-Cigarette/Vaping Use: Never Used Second Hand Smoke Exposure: No Use of substances other than those prescribed or required for medical reasons: No service: No Current occupational status: employed Current occupation: [employer] Current occupational exposures/hazards: No Cognitive needs: No Hearing needs: No Vision needs: No Review of Systems Const Denies fatigue, Denies fever(s), Denies night sweats, Denies poor appetite and Denies weight loss ENT Reports Normal hearing present, Denies dysphagia, Denies odynophagia, Denies throat swelling and Denies tongue swelling Card Reports no additional complaints Resp Reports no additional complaints GI Details: Denies abdominal pain, Denies melena, Denies bloating, Denies hematochezia, Denies constipation, Denies GI cramping, Denies dysphagia, Denies excessive flatus, Denies early satiety, Reports heartburn, Denies diarrhea, Denies nausea, Denies odynophagia, Denies vomiting and Denies hematemesis Skin/Breast Denies pruritus, Denies lesions, Denies rash and Denies jaundice Neuro Reports Normal hearing present and Denies Abnormal speech present Endo Denies fatigue Aller/Immun Denies throat swelling and Denies tongue swelling Physical Exam Vital Signs: Last Vital Signs Pulse 85 01/04/25 14:39 BP 126/67 01/04/25 14:39 BMI result Body Mass Index 28.3 Const General: cooperative, no acute distress, well developed and well groomed Nutritional Appearance: well nourished, obese and overweight Orientation/consciousness: oriented to person, oriented to place and oriented to time Limitations: No language barrier, ambulation with cane, ambulation with walker and wheelchair HEENT Head: Yes normocephalic and Yes atraumatic Eyes General: appearance normal, both eyes and all related structures Pupils: Equal, round and reactive pupils present Neck Neck: Yes normal visual inspection and Yes no lymphadenopathy Thyroid: Thyroid normal Resp Effort & Inspection: normal respiratory effort and able to speak in complete sentences Auscultation: clear to auscultation bilaterally Cardio Rate: regular rate Rhythm: regular rhythm Heart sounds: Normal, physiologic split S2 sound present Peripheral pulses: radial pulses present and posterior tibial pulses present GI Inspection: No distended, No Abdominal panniculus present and Yes scar Palpation (GI): Soft to palpation, nontender, no guarding, not rigid and No hepatosplenomegaly present Percussion: Yes normal to percussion Auscultation: normal bowel sounds Rectal Exam - Female: deferred Abdomen image: 2 1. surgical scar Skin General skin exam: no rashes or lesions noted, turgor normal, skin not dry, no jaundice, No spider nevi and no striae Rashes: no rashes Nails: normal Neuro General: oriented to person, oriented to place and oriented to time Cranial nerves: Yes Equal, round and reactive pupils present and Yes Normal hearing present Speech: No Abnormal speech present Extrem General: Yes normal to inspection, No clubbing, No cyanosis and No edema Psych Appearance: grossly normal and well kempt Mental Status: mental status grossly normal Speech and movement: Normal speech and movement present Affect: normal affect Attitude: cooperative Thought process: Normal thought process present and not confabulating Thought content: Normal thought content present Insight: Good insight present (Psych) Judgement: Good judgement present (Psych) Assessment & Plan Assessment & Plan (1) Regular alcohol consumption: Code(s): Z78.9 - Other specified health status Category: Social Hx (2) Family history of esophageal cancer: Comment: father age early 50's Code(s): Z80.0 - Family history of malignant neoplasm of digestive organs Category: Medical (3) Pre-op examination: Code(s): Z01.818 - Encounter for other preprocedural examination Category: Medical Plan this is her first colonoscopy. No bowel problems she has occasional GERD and is worried about her FHX of esophageal cancer. She denies any cardiac or respiratory problems. No ID problems. She as no known FHX of crc or polyps, but her father of esophageal cancer. Orders: Orders 2 Complete Blood Count Auto Diff Today Z78.9 - Other specified health status, Z80.0 - Family history of malignant neoplasm of digestive organs Comprehensive Met. Panel Today Z78.9 - Other specified health status, Z80.0 - Family history of malignant neoplasm of digestive organs EGD/[place] Combo - GI Use Only Today Z78.9 - Other specified health status, Z80.0 - Family history of malignant neoplasm of digestive organs Medications: New 2 peg 3350-electrolytes 236-22.74-6.74 -5.86 gram (Golytely) until fecal effluent is clear; do not exceed a total volume of 2,000 mL 240 mL PO Q10M 4,000 mL 0RF 1 day Z12.11 - Encounter for screening for malignant neoplasm of colon bisacodyl (Dulcolax (bisacodyl)) for colonoscopy prep 10 mg (2 x 5 mg) PO BEDTIME 4 tabs 0RF 2 days Coding Level of Care Code New Pt Level 3 (30159) Diagnoses Regular alcohol consumption Z78.9 Family history of esophageal cancer Z80.0 Pre-op examination Z01.818
== END 2025-01-04 15:17 | disposition home or self-care (01) ==
PROVIDERS: PCP Internal Medicine; Visit Provider Nurse Practitioner
DX: Z01.818 Encounter for other preprocedural examination (principal); Z12.11 Encounter for screening for malignant neoplasm of colon; Z80.0 Family history of malignant neoplasm of digestive organs; F10.90 Alcohol use, unspecified, uncomplicated
CPT/HCPCS: S0285

== ENCOUNTER 2025-01-04 14:37 | Outpatient (REF) | payer OTHER, SELFPAY ==
[2025-01-04 15:31] LABS: MANUAL DIFF FLAG NO
[2025-01-04 15:51] LABS: Basophils Percent Auto 0.4 % (0-2); Eosinophils Absolute Auto 0.1 X10*3/uL (0.0-0.4); Eosinophils Percent Auto 1.6 % (0-4); Hematocrit 41.2 % (37.0-47.0); Hemoglobin 14.2 g/dl (12.0-16.0); Imm Gran Abs Auto 0.03 X10*3/uL (0.00-0.03); Imm Gran Pct Auto 0.4 % (0.0-0.4); Lymphocytes Percent Auto 27.9 % (20-40); Mean Corpuscular HGB Conc 34.5 g/dl (31.0-35.0); Mean Corpuscular Hemoglobin 31.6 pg (27.0-33.0); Mean Corpuscular Volume 91.8 fL (80.0-98.0); Mean Platelet Volume 11.2 fL (9.4-12.3); Monocytes Absolute Auto 0.4 X10*3/uL (0.1-1.2); Monocytes Percent Auto 6.2 % (2-11); Neutrophils Absolute Auto 4.5 x10*3/uL (2.0-8.3); Neutrophils Percent Auto 63.5 % (45-73); Platelet Count 209 X10*3/uL (160-400); Red Blood Count 4.49 X10*6/uL (4.20-5.50); Red Cell Distribution Width 12.4 % (11.0-16.0); White Blood Count 7.1 X10*3/uL (4.8-10.8)
[2025-01-04 17:36] LABS: Alanine Aminotransferase 39 U/L (0-31); Albumin Level 4.4 g/dL (3.5-5.0); Alkaline Phosphatase 67 U/L (39-117); Anion Gap 9 (12-20); Aspartate Amino Transferase 30 U/L (5-31); Bilirubin Total 0.4 mg/dL (0.0-1.0); Blood Urea Nitrogen 11 mg/dL (9-16); Carbon Dioxide 31 mmol/L (22-29); Chloride 106 mmol/L (96-108); Cholesterol 181 mg/dL (<200); Estimated Glomerular Filt Rate > 60; Glucose Random 102 mg/dL (60-115); HDL Cholesterol 75 mg/dL (>40); LDL Cholesterol Calculated 98 mg/dL (<100); Potassium 3.4 mmol/L (3.3-5.1); Sodium 143 mmol/L (135-145); Total Protein 6.8 g/dL (6.5-8.0); Triglycerides 41 mg/dL (<150)
[2025-01-04 17:39] LABS: Vitamin D 25-OH Total 37.9 ng/mL (>30)
== END 2025-01-04 14:38 | disposition home or self-care (01) ==
LOC: HO.LAB 14:37
PROVIDERS: Internal Medicine; Visit Provider Nurse Practitioner
DX: Z78.9 Other specified health status (principal); Z80.0 Family history of malignant neoplasm of digestive organs; E55.9 Vitamin D deficiency, unspecified; Z13.220 Encounter for screening for lipoid disorders; I10 Essential (primary) hypertension
CPT/HCPCS: 36415; 80053; 80061; 82306; 85025

== ENCOUNTER 2025-02-08 09:09 | Outpatient (AMB) | payer OTHER, SELFPAY ==
[2025-02-08 09:40] VITALS: BP 132/80; PULSE 70; RESP 16; TEMP 37.1; O2SAT 100; BMI 28.9
--- NOTE | 2025-02-08 09:40 | A.OFFPC_ITS ---
Vital Signs 02/08/25 09:40 Height 5 ft 9 in Weight 196 lb BMI 28.9 BP 132/80 Blood Pressure Location Lt brachial Position Sitting Respiration 16 Pulse 70 Pulse Source Pulse Oximeter Temp 98.7 F Temp Source Oral Pulse Oximetry (%) 100 Oxygen Delivery Method Room Air Intake Visit Reasons: 6 months follow up Intake Note: Pt is here today for her 6mo. f/u Allergies No Known Allergies Allergy (Verified 02/08/25 10:10) Medication List - Last Reconciled 02/08/25 by Sade Ramsey MD bisacodyl (Dulcolax (bisacodyl)) 10 mg (2 x 5 mg) PO BEDTIME 2 days cholecalciferol (vitamin D3) 25 mcg PO DAILY hydrochlorothiazide 12.5 mg PO DAILY lisinopril 10 mg PO DAILY loratadine (Claritin) 10 mg PO DAILY peg 3350-electrolytes 236-22.74-6.74 -5.86 gram (Golytely) 240 mL PO Q10M 1 day Tobacco use date assessed: 02/08/25 Dental Screening Dental Screen Date: 02/08/25 Did you have a dental visit in the last 12 months?: No Did you have a dental problem in the last 6 months where you did not have access to dental care?: No Was dental information given to patient?: Patient has dentist HPI 6 months follow up HPI Details 54-year-old lady with hypertension, here today for her follow-up. She is currently on lisinopril 10 mg daily and chlorothiazide 12.5 mg once a day. Has been compliant with taking her medications, feels well, compliant with a low-salt diet, blood pressure today is within normal limits. Recently seen by [facility] and is scheduled to have a screening colonoscopy in the future. Current cigarette smoker, with no desire to quit at present time. [facility] Medical History (Updated 02/08/25 @ 10:28 by Sade Ramsey MD) Environmental and seasonal allergies Flu vaccine refused Regular alcohol consumption COVID-19 vaccination refused Not ready to quit smoking Vitamin D deficiency Fibroid Surgical History S/P section Family History Father Esophageal cancer Social History Housing: House Alcohol intake: current Alcohol intake frequency: a few times a week Alcohol type: beer Patient Tobacco Use Status: Current everyday Tobacco user Cigarettes Per Day: 4 e-Cigarette/Vaping Use: Never Used Second Hand Smoke Exposure: No service: No Current occupational status: employed Current occupation: [employer] Current occupational exposures/hazards: No Cognitive needs: No Hearing needs: No Vision needs: No Female Reproductive History Menstrual Other: Sees Dr. Rodríguez Virgen for her routine Pap and pelvic exam, and also orders her screening mammogram done at [facility]. Questionnaire PHQ-9 Over the last 2 weeks, how often have you been bothered by any of the following problems? 1. Little interest or pleasure in doing things: not at all 2. Feeling down, depressed, or hopeless: not at all 3. Trouble falling or staying asleep, or sleeping too much: not at all 4. Feeling tired or having little energy: not at all 5. Poor appetite or overeating: not at all 6. Feeling bad about yourself - or that you are a failure or have let yourself or your family down: not at all 7. Trouble concentrating on things, such as reading the newspaper or watching television: not at all 8. Moving or speaking so slowly that other people could have noticed. Or the opposite - being so fidgety or restless that you have been moving around a lot more than usual: not at all 9. Thoughts that you would be better off or of hurting yourself in some way: not at all Total score: 0 Depression Screening Interpretation: Negative Depression Screening Done: Yes 58112 - PHQ-9 Billing: Yes Source: Developed by Drs. Mark Cooley, Yun Haynes, Tommie Martinez and colleagues, with an educational shon from [employer]. Thrive Questionnaire Date Thrive assessed: 02/02/25 I am a: Patient What is your living situation today?: I have a steady place to live Within the past 12 months, did the food you bought not last and you didn't have the money to get more?: Never true Within the past 12 months, did you worry whether your food would run out before you got money to buy more?: Never true Do you have trouble paying for medicines?: No Do you have trouble getting transportation to medical appointments?: No Do you have trouble paying your heating and electricity bill?: No Do you have trouble taking care of your child, family member or friend?: No Do you have trouble with day-to-day activities such as bathing, preparing meals, shopping, managing finances, etc.?: No Are you currently unemployed and looking for a job?: No Are you interested in more education?: No Please select the resources that you would like help with: None Currently or been in a relationship where the following occur: No concerns reported THRIVE Score: 0 AUDIT C Alcohol Use Questionnaire (AUDIT-C) 1. How often do you have a drink containing alcohol?: 4 or more times a week 2. How many drinks containing alcohol do you have on a typical day when you are drinking?: 3 or 4 3. How often do you have six or more drinks on one occasion?: Monthly Total Score: 7 Score Reviewed/Action Taken: Yes (it's recommended to limit consumption to one drink or less per day) KRISTINE-7 AMB Questionnaire KRISTINE-7 Date KRISTINE - 7 assessed: 02/08/25 Feeling nervous, anxious, or on edge: 0 = Not at all Not being able to stop or control worryin = Not at all Worrying too much about different things: 0 = Not at all Trouble relaxin = Not at all Being so restless that it is hard to sit still: 0 = Not at all Becoming easily annoyed or irritable: 0 = Not at all Feeling afraid as if something awful might happen: 0 = Not at all Total KRISTINE-7 score (0-4 normal; 5-9 mild; 10-14 moderate; 15-21 severe): 0 Source: Developed by Drs. Mark Cooley, Yun Haynes, Tommie Martinez and colleagues, with an educational shon from [employer]. KRISTINE-7 Assessment Billing KRISTINE-7 Assessment Tool: KRISTINE-7 Assessment 57905 Review of Systems Const Denies fatigue, Denies fever(s), Denies night sweats, Denies poor appetite and Denies weight loss Eyes Denies change in vision ENT Reports Normal hearing present, Denies dysphagia, Denies odynophagia, Denies throat swelling and Denies tongue swelling Card Reports no additional complaints Resp Reports no additional complaints GI Details: Denies abdominal pain, Denies melena, Denies bloating, Denies hematochezia, Denies constipation, Denies GI cramping, Denies dysphagia, Denies excessive flatus, Denies early satiety, Reports heartburn, Denies diarrhea, Denies nausea, Denies odynophagia, Denies vomiting and Denies hematemesis Musc Reports no additional complaints Skin/Breast Denies pruritus, Denies lesions, Denies rash and Denies jaundice Neuro Reports Normal hearing present and Denies Abnormal speech present Psych Reports no additional complaints Endo Denies fatigue Scooter/Lymph Reports no additional complaints Aller/Immun Denies throat swelling and Denies tongue swelling Physical exam (Primary Care) Vital Signs: Last Vital Signs Temp 98.7 F 02/08/25 09:40 Pulse 70 02/08/25 09:40 Resp 16 02/08/25 09:40 BP 132/80 02/08/25 09:40 Pulse Ox 100 02/08/25 09:40 Oxygen Delivery Method Room Air 02/08/25 09:40 BMI result Body Mass Index 28.9 Tobacco/Smoking Status: Tobacco use Status Tobacco use date assessed 02/08/25 02/08/25 09:42 Patient Tobacco Use Status Current everyday Tobacco 02/08/25 09:42 e-Cigarette/Vaping Use Never Used 02/08/25 09:42 PHQ-9: PHQ-9 Score PHQ-9: Total score 0 02/08/25 10:09 Depression Screening Interpretation: Negative Thrive Assessment: Date of Thrive Assessment Date Thrive assessed 02/02/25 02/08/25 09:42 Currently or been in a relationship where the following occur: No concerns reported Const General: no acute distress and alert Orientation/consciousness: patient oriented x3 HENMT Head: Yes normocephalic Ears: external ears normal General nose exam: Normal external nose present Face and sinus: Yes face symmetric Mouth: Normal oral and palatal mucosa present, oropharynx normal and moist mucous membranes Eyes General: appearance normal, both eyes and all related structures Neck Neck: Yes full ROM, Yes no lymphadenopathy and Yes supple Thyroid: Thyroid normal Resp Effort & Inspection: normal respiratory effort and able to speak in complete sentences Auscultation: clear to auscultation bilaterally Cardio Rate: regular rate Rhythm: regular rhythm Heart sounds: S1 normal heart sound present and S2 normal heart sound present GI Palpation (GI): Soft to palpation, nontender, no guarding and no masses Auscultation: normal bowel sounds General: Yes no CVA tenderness and Yes deferred (Sees OBGYN) Back/Spine/Pelvis Back: no CVA tenderness and No back tenderness Neuro General: patient oriented x3, gait normal, moves all extremities, Normal light touch and pain sensation, no focal motor deficits and CN's II-XI intact bilaterally Cranial nerves: Yes Normal hearing present Cognition (Neuro): normal cognition Speech: No Abnormal speech present Gait exam (Neuro): Normal gait present Motor exam (neuro): 5/5 motor strength present throughout Extrem General: Yes normal to inspection, Yes full ROM, Yes no joint enlargement, Yes no pedal edema and Yes normal gait Psych Appearance: grossly normal and well kempt Mental Status: mental status grossly normal Speech and movement: Normal speech and movement present Affect: normal affect Attitude: cooperative Thought process: Normal thought process present Thought content: Normal thought content present Results Reviewed Results Reviewed: demian: Mai Ha Age/Sex: 54/F : 1970 Unit#: [id number] Attend Dr: SanaJanuary ANP-C Re01/04/25 Status: DEP [facility]F [facility] Disch: SPEC : [id number] SAMUEL: 01/04/25 STATUS: COMP REQ : [id number] RECD: 01/04/[address]: SanaJanuary ANP-C COMP: 01/04/25 ENTERED: 01/04/[address]: Sade Ramsey MD ORDERED: CBC Auto Diff Test Result Flag Reference WBC 7.1 4.8-10.8 X10*3/uL RBC 4.49 4.20-5.50 X10*6/uL HGB 14.2 12.0-16.0 g/dl HCT 41.2 37.0-47.0 % MCV 91.8 80.0-98.0 fL MCH 31.6 27.0-33.0 pg MCHC 34.5 31.0-35.0 g/dl RDW 12.4 11.0-16.0 % PLT 209 160-400 X10*3/uL MPV 11.2 9.4-12.3 fL Neut Pct Auto 63.5 45-73 % ImGran Pct Auto 0.4 0.0-0.4 % Lymp Pct Auto 27.9 20-40 % Beckham Pct Auto 6.2 2-11 % Eos Pct Auto 1.6 0-4 % Baso Pct Auto 0.4 0-2 % NRBC Pct Auto 0.0 0.0-0.2 /100WBC ANC Neut Abs # 4.5 2.0-8.3 x10*3/uL ImGran Abs Auto 0.03 0.00-0.03 X10*3/uL Lymph Abs Auto 2.0 1.2-4.9 X10*3/uL Beckham Abs Auto 0.4 0.1-1.2 X10*3/uL Eos Abs Auto 0.1 0.0-0.4 X10*3/uL Baso Abs Auto 0.0 0.0-0.2 X10*3/uL NRBC Abs Auto 0.000 0.0-0.012 X10*3/uL Name: Mai Ha Age/Sex: 54/F : 1970 Unit#: [id number] Attend Dr: Sana ANP-C Re01/04/25 Status: DEP REF Location: [facility] Disch: SPEC : [id number] SAMUEL: 01/04/25 STATUS: COMP REQ : [id number] RECD: 01/04/[address]: Sana ANP-C COMP: 01/04/25 ENTERED: 01/04/[address]: Sade Ramsey MD ORDERED: CMP, Lipid Panel Test Result Flag Reference Sodium 143 135-145 mmol/L Potassium 3.4 3.3-5.1 mmol/L CL 106 96-108 mmol/L CO2 31 H 22-29 mmol/L Gap 9 L 12-20 BUN 11 9-16 mg/dL Creat 0.70 0.5-1.4 mg/dL eGFR > 60 Chronic Kidney Disease: Estimated GFR < 60 mL/min/1.73m2 Severe Kidney Disease: Estimated GFR < 15 mL/min/1.73m2 Glucose, Random 102 60-115 mg/dL CA 10.0 8.4-10.2 mg/dL Total Bili 0.4 0.0-1.0 mg/dL AST (GOT) 30 5-31 U/L ALT (GPT) 39 H 0-31 U/L Protein, Total 6.8 6.5-8.0 g/dL Alb 4.4 3.5-5.0 g/dL Triglyceride 41 <150 mg/dL Desirable Triglyceride: less than 150 mg/dL Borderline High Triglyceride 150-199 mg/dL High Triglyceride: 200-499 mg/dL Very High Triglyceride: greater than or equal to 5OO mg/dL Cholesterol 181 <200 mg/dL Desirable Cholesterol: less than 200 mg/dL Borderline High Cholesterol: 200-239 mg/dL High Cholesterol: greater than 239 mg/dL LDL Calculated 98 <100 mg/dL Desirable LDL: less than 100 mg/dL Near Optimal/Above Optimal LDL: 110-129 mg/dL Borderline High LDL: 130-159 mg/dL High LDL: 160-189 mg/dL Very High LDL: greater than or equal to 190 mg/dL HDL 75 >40 mg/dL Desirable HDL: greater than 40 mg/dL Note: This HDL assay may give artificially low results in patients with liver disease. Alk Phos 67 39-117 U/L Coding Level of Care Code Est Pt Level 4 (22321) Complex EM visit Add On G2211 Diagnoses Hypertension, unspecified type I10 Hypertension type: unspecified Environmental and seasonal allergies J30.89 Regular alcohol consumption Z78.9 Not ready to quit smoking Z72.0 Additional Codes PHQ-9 - 45910 - PHQ-9 Billing: Yes ([id number]) KRISTINE-7 Assessment Billing - KRISTINE-7 Assessment Tool: KRISTINE-7 Assessment 11080 ([id number]) Assessment & Plan Assessment & Plan (1) Hypertension: Comment: Patient's lisinopril increased from 5 mg to 10 mg p.o. daily Code(s): I10 - Essential (primary) hypertension Category: Medical Qualifiers: Hypertension type: unspecified Qualified Code(s): I10 - Essential (primary) hypertension Plan: Blood pressure within acceptable limits, continued on lisinopril 10 mg daily in addition to HCTZ 12.5 mg once a day. Reinforced importance of following a low sodium diet, getting regular exercise, and lowering stress levels, and cutting back on regular alcohol use as well as smoking cessation. Reviewed recent fasting labs which showed normal electrolytes, renal function, lipid panel and liver enzymes (2) Environmental and seasonal allergies: Code(s): J30.89 - Other allergic rhinitis Category: Medical Plan: Currently taking loratadine 10 mg daily (3) Regular alcohol consumption: Code(s): Z78.9 - Other specified health status Category: Social Hx Plan: it's recommended to limit consumption to one drink or less per day.?This is not intended as an average, but rather a daily limit to minimize health risks.?If you drink, spread it out over several days and try to have drink-free days each week (4) Not ready to quit smoking: Code(s): Z72.0 - Tobacco use Category: Social Hx Plan: Patient strongly advised to stop smoking, as smoking damages blood vessels, degenerative of joints and spine, damage to lungs and heart., predisposes to developing certain cancers like lung, breast, bladder, colon. Recommended to try decreasing cigarette use by 1-2 cigarettes a day. Advised to monitor what triggers are for smoking so that this can be discussed on the next office visit. We can discuss different options to quit smoking when ready. Medications: New loratadine (Claritin) 10 mg PO DAILY Changed From lisinopril 10 mg (2 x 5 mg) PO DAILY 180 tabs 1RF To lisinopril 10 mg PO DAILY 90 tabs 4RF Refilled hydrochlorothiazide 12.5 mg PO DAILY 90 tabs 3RF
== END 2025-02-08 10:34 | disposition home or self-care (01) ==
LOC: HO.HMCC 09:10
PROVIDERS: Visit Provider Internal Medicine
DX: I10 Essential (primary) hypertension (principal); J30.89 Other allergic rhinitis; Z78.9 Other specified health status; Z72.0 Tobacco use

== ENCOUNTER → 2025-02-08 09:09 | Outpatient (BNVA) | payer OTHER, SELFPAY | PROVIDERS: Visit Provider Internal Medicine | DX: I10 Essential (primary) hypertension (principal); J30.89 Other allergic rhinitis; Z79.899 Other long term (current) drug therapy; Z78.9 Other specified health status; Z72.0 Tobacco use | CPT/HCPCS: 96127 ==